=== PATIENT | female | born 1995 | race Caucasian/White ===

== ENCOUNTER 2019-12-22 16:12 | Emergency (ER) | payer OTHER ==
[~2019-12-22] VITALS: Ht 162.6 cm; Wt 99.8 kg
[2019-12-22] MEDS ORDERED: PRENATABS RX T1 EACH PO (16:37)
== END 2019-12-22 22:12 | disposition home or self-care (01) ==
LOC: ER 16:12
DX: O26.892 Other specified pregnancy related conditions, second trimester (principal); R10.2 Pelvic and perineal pain; Z3A.15 15 weeks gestation of pregnancy

== ENCOUNTER 2019-12-31 15:45 | Emergency (ER) | payer OTHER ==
[~2019-12-31] VITALS: Ht 162.6 cm; Wt 90.7 kg
[~2019-12-31 15:45] MED LIST: PRENATABS RX T1 EACH PO
== END 2019-12-31 20:17 | disposition home or self-care (01) ==
LOC: ER 15:45
DX: O26.892 Other specified pregnancy related conditions, second trimester (principal); N89.8 Other specified noninflammatory disorders of vagina; Z3A.17 17 weeks gestation of pregnancy

== ENCOUNTER 2020-02-20 18:29 | Outpatient (CLI) | payer OTHER | END 2020-02-20 22:30 | disposition left against medical advice (07) | LOC: OBS/DEL 18:29 | PROVIDERS: ATTEND Specialist | DX: O46.8X2 Other antepartum hemorrhage, second trimester (principal) ==

== ENCOUNTER 2020-06-07 07:48 | Inpatient (IN) | payer OTHER ==
[~2020-06-07] VITALS: Ht 261.6 cm; Wt 3.6 kg
[2020-06-09] MEDS ORDERED: SURFAK240 M1 PO (09:24)
[2020-06-09] MEDS ORDERED: IBUPROFEN800 MG PO (09:24)
== END 2020-06-09 15:54 | disposition home or self-care (01) | DRG 788 ==
LOC: LDR 07:48 → OB/GYN 07:48
PROVIDERS: ADMIT Specialist; ATTEND Specialist
PROC: 4A1HXFZ Monitoring of Products of Conception, Cardiac Rhythm, External Approach (ICD-10-PCS; 2020-06-07)
PROC: 10D00Z1 Extraction of Products of Conception, Low, Open Approach (ICD-10-PCS; principal; 2020-06-07 13:00)
DX: O34.211 Maternal care for low transverse scar from previous cesarean delivery (principal); Z3A.39 39 weeks gestation of pregnancy; Z37.0 Single live birth; Z20.828 Contact with and (suspected) exposure to other viral communicable diseases